=== PATIENT | female | born 1970 | race Caucasian/White ===

== ENCOUNTER 2016-12-09 18:20 | Emergency (ER) | payer OTHER ==
[2016-12-09 21:55] LABS: BASOPHIL 0.4 % (0-2); EOSINOPHIL 1.1 % (0-5); HCT 40.6 % (37.0-47.0); HGB 14.7 g/dl (12.5-16.0); LYMPHOCYTE 16.1 % (15-48); MCH 34.9 pg (25.0-31.0); MCHC 36.2 g/dL (32.0-36.0); MCV 96.4 fL (78.0-100.0); MPV 9.3 fL (6.0-9.5); NEUTROPHIL 75.4 % (41-80); PLT 265 K/uL (150-400); RBC 4.21 M/uL (4.20-5.40); RDW 12.4 % (11.5-14.0); WBC 12.2 K/uL (4.0-10.5)
[2016-12-09 22:39] LABS: ALBUMIN 4.7 g/dL (3.5-5.0); BILIRUBIN - TOTAL 0.7 mg/dL (0.1-1.0); CREATININE 0.7 mg/dL (0.5-1.0); GLOBULIN (CALCULATION) 3.8 g/dL (2.2-4.2); POTASSIUM 3.7 mmol/L (3.5-5.1); TOTAL PROTEIN 8.5 g/dL (6.4-8.3)
[2017-01-03] MEDS ORDERED: BENAZEPRIL HCL20 MG PO (18:38)
[2017-01-03] MEDS ORDERED: ELAVIL50 MG PO (18:38)
[2017-01-03] MEDS ORDERED: HCTZ25 MG PO (18:38)
[2017-01-03] MEDS ORDERED: VICODIN 10/3251 EACH PO (18:39)
[2017-01-03] MEDS ORDERED: ZOFRAN ODT8 MG PO (18:39)
[2017-01-03] MEDS ORDERED: CEFDINIR300 MG PO (18:40)
[2017-01-03] MEDS ORDERED: MUCINEX 600MG600 MG PO (18:40)
[2017-01-03] MEDS ORDERED: PROTONIX 40MG T40 MG PO (18:40)
[2017-01-03] MEDS ORDERED: MAG-OXIDE 400M400 MG PO (18:41)
[2017-01-03] MEDS ORDERED: PROBIOTIC1 EAC1 PO (18:41)
[2017-01-03] MEDS ORDERED: CERTAGEN1 EACH PO (18:42)
[2017-01-03] MEDS ORDERED: MAGIC MOUTHWASH PO (18:42)
[2017-01-03] MEDS ORDERED: DIAZEPAM 5MG TAB5 MG PO (18:42)
[2017-01-03] MEDS ORDERED: K PHOS PO (18:43)
== END 2016-12-09 22:52 | disposition home or self-care (01) ==
LOC: FER 18:20
PROVIDERS: Emergency Medicine Emergency Medical Services
DX: F07.81 Postconcussional syndrome (principal); R07.81 Pleurodynia; M25.572 Pain in left ankle and joints of left foot; I10 Essential (primary) hypertension; F41.9 Anxiety disorder, unspecified; F17.210 Nicotine dependence, cigarettes, uncomplicated
CPT/HCPCS: 36415; 70450; 71010; 80053; 85025; J1100; J2405